=== PATIENT | female | born 1985 | race Caucasian/White ===

== ENCOUNTER → 2024-07-12 08:27 | Outpatient (REF) | payer BC, SELFPAY | LOC: HWWDC 08:27 | PROVIDERS: ATTENDING PHYSICIAN Obstetrics & Gynecology; FAMILY PHYSICIAN Family Medicine | DX: Z12.31 Encounter for screening mammogram for malignant neoplasm of breast (principal) | CPT/HCPCS: 77063; 77067 ==

== ENCOUNTER 2024-10-04 12:47 | Emergency (ER) | payer BC, SELFPAY ==
[2024-10-04 13:00] VITALS: BP 154/107
[2024-10-04 13:03] VITALS: BP 144/107
[2024-10-04 13:16] LABS: % Basophils 0.3 % (0-2); % Eosinophils 1.2 % (0-6); % Immature Granulocytes 0.3 % (0-0.5); % Lymphocytes 35.3 % (20.5-51.1); % Monocytes 4.4 % (1.7-9.3); % Neutrophils 58.5 % (42.2-75.2); Absolute Eosinophils 0.1 10^3/uL (0-0.7); Absolute Lymphocytes 3.3 10^3/uL (1.2-3.4); Absolute Monocytes 0.4 10^3/uL (0.1-0.6); Absolute Neutrophils 5.4 10^3/uL (1.4-6.5); Hematocrit 43.5 % (37.0-47.0); Hemoglobin 15.1 g/dL (12.0-16.0); Mean Corp Hgb Conc. 34.7 g/dL (33.0-37.0); Mean Corpuscular Hgb 30.8 pg (27.0-31.0); Mean Corpuscular Volume 88.6 fL (81.0-99.0); Mean Platelet Volume 10.6 fL (7.4-10.4); Nucleated Red Blood Cells % 0 %; Platelet Count 226 10^3/uL (130-400); Red Blood Cell Count 4.91 10^6/uL (4.20-5.40); White Blood Cell Count 9.3 10^3/uL (4.8-10.8)
[2024-10-04 13:24] LABS: HCG, Serum Qualitative Screen Negative
[2024-10-04 13:34] LABS: ALT (SGPT) 18 U/L (0-35); AST (SGOT) 43 U/L (14-36); Albumin 4.8 g/dl (3.5-5.0); Alkaline Phosphatase 55 U/L (38-126); Blood Urea Nitrogen 19 mg/dl (7-17); Calcium 10.3 mg/dl (8.4-10.2); Carbon Dioxide 29 mmol/L (22-30); Chloride 99 mmol/L (98-107); Glucose 100 mg/dl (70-99); Potassium 4.1 mmol/L (3.5-5.1); Sodium 139 mmol/L (135-145); Total Protein 8.2 g/dl (6.3-8.2); eGFR > 60.00
[2024-10-04 13:38] LABS: Troponin I < 0.012 ng/ml
[2024-10-04 15:40] VITALS: BP 151/86
[2024-10-04 15:50] VITALS: BP 139/98
[2024-10-04 16:00] VITALS: BP 149/104
[2024-10-04 16:10] VITALS: BP 139/102
[2024-10-04] MEDS: MOTRIN 400 MG PO (16:16)
--- NOTE | 2024-10-04 16:18 | ED.GENMED ---
History of Present Illness
<Mari Shoemaker PA-C - Last Filed: 10/04/24 19:06>
General
Chief Complaint: Chest Pain
Source: patient
Exam Limitations: none
Time Seen by Provider: 10/04/24 15:34
Nursing documentation reviewed up to this point in time: agreed with
History of Present Illness
History of Present Illness:
Patient is a 39-year-old female presenting to the emergency department for evaluation of intermittent right chest pain. Patient reports that over the past few days and worse today she has had intermittent pain/tightness in her right upper chest
with some radiation into her right shoulder. She has not noticed any exertional or pleuritic component. No positional component. Patient denies any associated shortness of breath, dizziness/lightheadedness, nausea/vomiting, or diaphoresis.
Patient does note that she has had similar pain in the past with a muscle strain in the area. However�she does not know of any recent inciting trauma or injury.
In addition�patient has concerns regarding increased tightness/pain in her left calf. She does have a known Anthony's cyst in the left popliteal area for which she has scheduled for a drainage with orthopedics next week. However�over the past few
days pain in left calf has increased and she is worried about a possible blood clot. Patient denies any recent travel or recent surgeries. No exogenous hormone use. No personal or family history of blood clots.
Patient denies any family history of ACS although her father did pass away from a aortic dissection. Patient did have a workup from cardiology about 1 to 2 years ago with normal echocardiogram.
Review of Systems
<Mari Shoemaker PA-C - Last Filed: 10/04/24 19:06>
Review of Systems
Allergies reviewed?: Yes
All Other Systems: ROS reviewed and negative except as documented in HPI and ROS
Phy Exam
<Mari Shoemaker PA-C - Last Filed: 10/04/24 19:06>
Physical Exam
Physical Exam:
Vitals: Hypertensive, otherwise vital signs stable. Afebrile
General: Patient is well appearing, no acute distress
Skin: Warm and dry, no rashes or lesions
Head: Normocephalic, atraumatic
Eyes: Sclera nonicteric. EOMs intact. No nystagmus.
Throat: Protecting airway
Neck: Normal ROM, no cervical spine tenderness, no meningismus. No JVD
Cardiac: Regular rate and rhythm, no murmurs. Reproducible tenderness to right anterior chest wall.
Pulm: Normal respiratory effort, no wheezes, rales, rhonchi heard on exam.
Abdomen: Abdomen soft. No abdominal tenderness.
Extremities: Palpable Anthony's cyst in left popliteal. No tenderness, pitting edema, erythema, or warmth of left lower extremity. Negative Homans' sign. Palpable DP pulse in LLE.
Neuro: AAOx3. CN II-XII intact. No focal neurologic deficits.
Psychiatric: Normal affect.
Scores
<Mari Shoemaker PA-C - Last Filed: 10/04/24 19:06>
Heart Score for Chest Pain Patients
STEMI patient?: No
History: Slightly or Non-Suspicious
ECG: Nonspecific Repolarization
Age: </= 45 years
Risk Factors: No Risk Factors
Troponin: </= Normal Limit
Heart Score for Chest Pain Patients: 1
Heart Score Risk: 2.5% MACE over next 6 weeks
Course
<Mari Shoemaker PA-C - Last Filed: 10/04/24 19:06>
Orders/Labs/Results
Orders:
Orders
10/04/24 12:48
EKG [Electrocardiogram (*1)] Urgent
Reason for Study: Chest Pain
EKG- Treatment ONCE
10/04/24 13:06
Test Result ONCE
10/04/24 13:09
Complete Blood Count/With Diff Urgent
Comprehensive Metabolic Panel Urgent
HCG, Serum Qualitative Screen Urgent
Troponin I Urgent
10/04/24 16:08
Electrocardiogram (*1) Urgent
Reason for Study: Chest Pain
Ibuprofen [Motrin] 400 mg PO NOW STA
US Legs, Left [US Periph Venous LOWER Ext LT] Urgent
Comment:
Reason For Exam: LLE pain and swelling
10/04/24 16:09
EKG- Treatment ONCE
CR Chest - 2 Views Urgent
Comment:
Reason For Exam: right chest pain
10/04/24 16:29
Troponin I Urgent
Abnormal Lab Results
10/04/24
13:09
MPV 10.6 H fL
(7.4-10.4)
BUN 19 H mg/dl
(7-17)
Glucose 100 H mg/dl
(70-99)
Calcium 10.3 H mg/dl
(8.4-10.2)
AST 43 H U/L
(14-36)
10/04/24 13:09
10/04/24 13:09
Vital Signs
Initial and Last Documented VS:
Initial Vital Signs
Temp Pulse Resp BP Pulse Ox
98.6 F 78 18 154/107 99
10/04/24 13:00 10/04/24 13:00 10/04/24 13:00 10/04/24 13:00 10/04/24 13:00
Last Documented Vital Signs
Temp Pulse Resp BP Pulse Ox
98.6 F 80 16 139/102 99
10/04/24 13:00 10/04/24 17:15 10/04/24 17:00 10/04/24 16:10 10/04/24 16:15
<Leesa Alejo, DO - Last Filed: 10/04/24 17:35>
Orders/Labs/Results
Orders:
Orders
10/04/24 12:48
EKG [Electrocardiogram (*1)] Urgent
Reason for Study: Chest Pain
EKG- Treatment ONCE
10/04/24 13:06
Test Result ONCE
10/04/24 13:09
Complete Blood Count/With Diff Urgent
Comprehensive Metabolic Panel Urgent
HCG, Serum Qualitative Screen Urgent
Troponin I Urgent
10/04/24 16:08
Electrocardiogram (*1) Urgent
Reason for Study: Chest Pain
Ibuprofen [Motrin] 400 mg PO NOW STA
US Legs, Left [US Periph Venous LOWER Ext LT] Urgent
Comment:
Reason For Exam: LLE pain and swelling
10/04/24 16:09
EKG- Treatment ONCE
CR Chest - 2 Views Urgent
Comment:
Reason For Exam: right chest pain
10/04/24 16:29
Troponin I Urgent
Abnormal Lab Results
10/04/24
13:09
MPV 10.6 H fL
(7.4-10.4)
BUN 19 H mg/dl
(7-17)
Glucose 100 H mg/dl
(70-99)
Calcium 10.3 H mg/dl
(8.4-10.2)
AST 43 H U/L
(14-36)
10/04/24 13:09
10/04/24 13:09
Vital Signs
Initial and Last Documented VS:
Initial Vital Signs
Temp Pulse Resp BP Pulse Ox
98.6 F 78 18 154/107 99
10/04/24 13:00 10/04/24 13:00 10/04/24 13:00 10/04/24 13:00 10/04/24 13:00
Last Documented Vital Signs
Temp Pulse Resp BP Pulse Ox
98.6 F 80 16 139/102 99
10/04/24 13:00 10/04/24 17:15 10/04/24 17:00 10/04/24 16:10 10/04/24 16:15
<Mari Shoemaker PA-C - Last Filed: 10/04/24 19:06>
MDM/Problems Addressed
Differential Diagnosis Includes:
Not limited to: Muscular strain, costochondritis, pericarditis, myocarditis, pneumonia, Anthony's cyst, doubt DVT, doubt ACS
MDM/Problems Addressed:
39-year-old female presenting with intermittent right chest wall pain. No exertional or pleuritic component. She does have pain in her left calf with known Anthony's cyst-scheduled for drainage in a week with orthopedics. Patient is hypertensive,
otherwise vital signs are stable. Physical exam as above. Patient is very well-appearing, in no apparent distress. Cardio/pulmonary assessment unremarkable. Palpable Anthony's cyst of left popliteal. No pitting edema, erythema, warmth of left
lower extremity. Patient without any neurologic deficits. Patient low risk for emergent cardiac process with heart score of 1. Initial labs obtained in triage without any clinically significant abnormalities. Initial troponin undetectable.
test negative. Ultimately suspect musculoskeletal etiology/chest wall pain. Do not suspect DVT of left lower extremity. Will repeat troponin, check ultrasound of left lower extremity and chest x-ray. Anticipate discharge if work
unremarkable.
Chronic conditions affecting care:
N/A
Acute Exacerbation and/or Progression of Chronic Illness:
N/A
<Mari Shoemaker PA-C - Last Filed: 10/04/24 19:06>
*Radiology
Radiology exam reviewed: preliminary read by ED provider and radiology read reviewed
*Pulse Oximetry
Patient hypoxic: no
*EKG
Interpreted by ED Provider?: Yes
EKG Intrepretation Date: 10/04/24
Interpretation: normal
Comparison EKG: no comparison EKG present
Heart Rate: 74
Rate: normal
Rhythm: sinus
[place]: normal axis
Interval: normal interval
QRS Pattern: normal QRS
Ischemia: non-specific ST changes
*Critical Care Note
Total Time (30-74mins, 75-104mins- exclusive of procedures): Not Applicable
<Mari Shoemaker PA-C - Last Filed: 10/04/24 19:06>
Update Note
Update Note:
Update 5:45 PM: No evidence of left lower extremity DVT on ultrasound. Chest x-ray without acute disease. Repeat troponin remains undetectable. Low suspicion for ACS. Patient is PERC negative�do not suspect PE. Feel patient is stable for
discharge with cardiology follow-up outpatient as needed given low suspicion for acute cardiac pathology. Return precautions discussed with patient. Stable for discharge.
ED Attending Note
<Mari Shoemaker PA-C - Last Filed: 10/04/24 19:06>
-
Portions of this chart may have been created with voice recognition software.� Occasional wrong word or��sound alike� substitutions may have occurred due to the inherent limitations of voice recognition software.
<Leesa Alejo DO - Last Filed: 10/04/24 17:35>
ED Attending Note
Patient seen and examined by attending physician: Yes
I performed the substantive portion of visit, reviewed & personally made and approve the management plan that is documented in note by myself or TOM.: Yes
I performed a history and physical exam of patient and discussed management with resident, I reviewed resident's note and agree with documented findings and plan of care.: Yes
ED Attending Note:
39-year-old female without significant past medical history presenting to the emergency department for right-sided chest pain. Notes symptoms for the last few days, pain goes to the shoulder, worse with certain movements. Denies any known inciting
injury or trauma. Does note family history of cardiac disease which was her primary concern. Denies any difficulty breathing, history of blood clot, recent surgery, recent travel, exogenous estrogen. Does note a left Anthony's cyst in the popliteal
region, and feels that her left leg is slightly more swollen. She is due to have the cyst drained. Denies numbness or tingling to the extremity. Denies fever cough. Vital signs on arrival are normal.
On exam patient is well-appearing, no acute distress or discomfort. Unremarkable cardiac and pulmonary exam, mild reproducible tenderness to the right chest wall. Ultimately suspect musculoskeletal component. EKG obtained, nonischemic. Patient
had negative troponin x 2, low risk by heart score. At this time low suspicion for ACS. Patient PERC negative. Benign examination of the lower extremities, without significant swelling or erythema. Screening ultrasound performed, no DVT. At
this time feel stable for discharge with close interval follow-up with cardiology given symptoms and family history, however again low suspicion for cardiac pathology. Return precautions discussed and patient verbalized understanding
Discharge Plan
Departure
Patient Disposition: Home (Routine Discharge)
Date of Disposition: 10/04/24
Time of Disposition: 17:30
Patient with high blood pressure during this ER visit?: Yes
Condition: Good
Covid-19: Not Applicable
Discharge Problem:
Chest pain, Anthony cyst
Instructions: Anthony's Cyst (DC), Chest pain, BLOOD PRESSURE
Prescriptions:
No Action
Tablet
1 tab PO DAILY
ibuprofen 600 MG tablet
400 mg PO Q4HPRN PRN (Reason: moderate pain/cramps) 0RF
Referrals:
Batool Fernández DO [Family Provider] -
Devon Willson, [Active] - As needed
Activity Restrictions/Additional Instructions:
RETURN TO THE EMERGENCY DEPARTMENT WITH ANY CHEST PAIN, SHORTNESS OF BREATH, SEVERE BACK PAIN, NUMBNESS/TINGLING IN LOWER EXTREMITIES, WORSENING IN CURRENT SYMPTOMS, OR ANY OTHER CONCERNS
-You can take Motrin and/or Tylenol as needed for any chest pain.
-You should follow-up with orthopedics as scheduled for drainage of Anthony's cyst.
-Follow-up with cardiology for further evaluation/management as needed. The contact information has been provided for you above.
Monitor your symptoms closely return to the emergency department with any acute worsening/new symptoms or any other concerns
Interventions
Interventions:
*Risk Screen - Suicide Last Done: 10/04/24 17:04
*General Assessment Last Done: 10/04/24 17:36
*Neglect/Abuse Screening Last Done: 10/04/24 17:04
ED- Fall Risk Assessment Last Done: 10/04/24 17:36
*ED COVID-19 Vaccine History Last Done: 10/04/24 17:04
*Nursing Disposition Last Done: 10/04/24 17:36
ED- Cardiac Assessment Last Done: 10/04/24 16:10
Discharge Date and Time
Discharge Date/Time: 10/04/24 17:37
Print Language: NAURUAN
[2024-10-04 17:10] LABS: Troponin I < 0.012 ng/ml
== END 2024-10-04 17:37 | disposition home or self-care (01) ==
LOC: EMR 12:47
PROVIDERS: Physician Assistant; Student in an Organized Health Care Education/Training Program; EMERGENCY PHYSICIAN Student in an Organized Health Care Education/Training Program; FAMILY PHYSICIAN Family Medicine
DX: R07.89 Other chest pain (principal); M71.22 Synovial cyst of popliteal space [Baker], left knee; R03.0 Elevated blood-pressure reading, without diagnosis of hypertension
CPT/HCPCS: 99285; 71046; 80053; 84484; 84703; 85025; 93005; 93971

== ENCOUNTER → 2025-05-03 10:10 | Outpatient (REF) | payer BC, SELFPAY | LOC: WDC 10:10 | PROVIDERS: ATTENDING PHYSICIAN Obstetrics & Gynecology; REFERRING PHYSICIAN Advanced Practice Midwife | DX: N64.4 Mastodynia (principal) | CPT/HCPCS: 76642; 77062; 77066 ==